=== PATIENT | male | born 1970 | race Caucasian/White ===

== ENCOUNTER 2016-08-26 15:30 | Emergency (ER) | payer OTHER ==
[~2016-08-26] VITALS: Ht 185.4 cm; Wt 130.0 kg
[~2016-08-26 15:30] MED LIST: CIPR500T2 PO; FLEX10TA OR; IBUP800T23 PO; RANI150T PO; TERA5CAP3 PO; TRAM50TA PO
[2016-08-26 15:33] VITALS: BP 136/89; PULSE 118; RESP 16; TEMP 98.8; O2SAT 97
--- NOTE | 2016-08-26 16:07 | PD ---
Physical Exam Date Seen by Provider: Aug 26, 2016 Time Seen by Provider: 16:03 Narrative 45 y/o male with Hx neuropathy presents with open blister to left lateral foot that he noticed 4 days ago with recent noticeable swelling and erythema. Denies fever or chills. Patient states pain of 2/10, in spite of neuropathy. Patients VS stable. Awaiting Bed Placement. Data Data Last Documented VS Vital Signs Date Time Temp Pulse Resp B/P Pulse Ox O2 Delivery O2 Flow Rate FiO2 08/26/16 15:33 98.8 118 16 136/89 97 Room Air [facility] Medical Record Reviewed: Yes Supervised Visit with ARIE: Yes Condition: Stable Syd Espinoza Aug 26, 2016 16:07
--- NOTE | 2016-08-26 17:04 | PD ---
HPI Chief Complaint: Injury Time Seen by Provider: 17:00 Travel History International Travel<30 days: No Contact w/Intl Traveler<30days: No Traveled to known affect area: No History of Present Illness HPI 45-year-old male that presents to the ED for evaluation of possible blister to his left leg. 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 The patient is not cancer but enough for him to have symptoms. Per patient he is usually able to ambulate but he has difficulty with sensation of his lower legs. Per patient this is chronic for him. No history of diabetes or hypertension. Per patient he noticed on Saturday that he had a blister to the lateral aspect of his left foot. Per patient his been able to monitor it but today seemed to be red and swollen. He is not sure what caused the blister although he does tell me he was doing yardwork when initially he noticed it. He denies any chest pain or shortness of breath. No fevers chills or sweats. Per patient he does have some discomfort on it which is 2 out of 10 more like a pressure which his initial for him as he has no sensation in the lower extremities. Per patient this is the main thing that made him concerned. He does have a history of staph infection secondary to lumbar puncture and surgery to his lower back for the tumor that got infected. PFSH Past Medical History Blood Disorders: No Cancer: No Cardiovascular Problems: No Chemotherapy: No Diminished Hearing: No Endocrine: No Gastrointestinal Disorders: No Genitourinary: No Immune Disorder: No Musculoskeletal: Yes Neurologic: No Psychiatric: No Reproductive: No Respiratory: No Past Surgical History AICD: No Arteriovenous Shunt: No Eye Surgery: Yes (CATARACT) Insulin Pump: No Joint Replacement: No Pacemaker: No Other Surgery: Yes (CATARACT) Social History Alcohol Use: Yes (5 TO 6 DRINKS A DAY 15 YEARS 02/12/06) Tobacco Use: Yes (1/2 PACK A DAY , 15 YEARS, 02/13/06) Substance Use: No Allergies-Medications (Allergen,Severity, Reaction): Coded Allergies: No Known Allergies (Verified , 08/26/16) Reported Meds & Prescriptions Reported Meds & Active Scripts Active Mupirocin Topical (Mupirocin) 2 % Oint 1 Applic TOPICAL BID Keflex (Cephalexin) 500 Mg Capsule 500 Mg PO Q8H 10 Days Clindamycin (Clindamycin HCl) 150 Mg Cap 300 Mg PO Q6H 10 Days Review of Systems Except as stated in HPI: all other systems reviewed are Neg Physical Exam Narrative GENERAL: SKIN: Warm and dry. HEAD: Atraumatic. Normocephalic. EYES: Pupils equal and round. No scleral icterus. No injection or drainage. ENT: No nasal bleeding or discharge. Mucous membranes pink and moist. Tongue is midline. No uvula deviation. NECK: Trachea midline. No JVD. CARDIOVASCULAR: Regular rate and rhythm. No murmurs, S3, S4. RESPIRATORY: No accessory muscle use. Clear to auscultation. Breath sounds equal bilaterally. GASTROINTESTINAL: Abdomen soft, non-tender, nondistended. Hepatic and splenic margins not palpable. MUSCULOSKELETAL: Extremities without clubbing, cyanosis, or edema. No obvious deformities. Full range of motion of the lower extremities with no pain. Patient does have noticeable sensation loss in the lower legs which is chronic. 2+ pulses bilaterally. Patient has an open wound which is about 3 cm in diameter on the lateral aspect of the right leg. Patient has some drainage from an as well as erythema surrounding it. Slightly tender to touch. No purulence or mass noted. Erythema seems to be creeping up. About 5 cm in diameter. NEUROLOGICAL: Awake and alert. No obvious cranial nerve deficits. Motor grossly within normal limits. Five out of 5 muscle strength in the arms and legs. Normal speech. PSYCHIATRIC: Appropriate mood and affect; insight and judgment normal. Data Data Last Documented VS Vital Signs Date Time Temp Pulse Resp B/P Pulse Ox O2 Delivery O2 Flow Rate FiO2 08/26/16 17:22 93 18 95 Room Air 08/26/16 15:33 98.8 136/89 Orders Complete Blood Count With Diff (08/26/16 16:37) Basic Metabolic Panel (Bmp) (08/26/16 16:37) Blood Culture (08/26/16 16:37) Magnesium (Mg) (08/26/16 16:37) Iv Access Insert/Monitor (08/26/16 16:37) Foot, Complete ([id number]) (08/26/16 ) Vascular Poc Ultrasound (08/26/16 ) Vascular Access Team Consult/P PRN (08/26/16 16:59) Clindamycin Inj (Cleocin Inj) (08/26/16 17:45) Wound Culture And Gram Stain (08/26/16 17:39) Labs Laboratory Tests Test 08/26/16 16:45 White Blood Count 11.0 TH/MM3 Red Blood Count 4.93 MIL/MM3 Hemoglobin 13.7 GM/DL Hematocrit 41.0 % Mean Corpuscular Volume 83.3 FL Mean Corpuscular Hemoglobin 27.8 PG Mean Corpuscular Hemoglobin 33.3 % Concent Red Cell Distribution Width 14.5 % Platelet Count 268 TH/MM3 Mean Platelet Volume 7.8 FL Neutrophils (%) (Auto) 79.1 % Lymphocytes (%) (Auto) 11.6 % Monocytes (%) (Auto) 6.4 % Eosinophils (%) (Auto) 2.0 % Basophils (%) (Auto) 0.9 % Neutrophils # (Auto) 8.7 TH/MM3 Lymphocytes # (Auto) 1.3 TH/MM3 Monocytes # (Auto) 0.7 TH/MM3 Eosinophils # (Auto) 0.2 TH/MM3 Basophils # (Auto) 0.1 TH/MM3 CBC Comment DIFF FINAL Differential Comment Sodium Level 138 MEQ/L Potassium Level 4.1 MEQ/L Chloride Level 105 MEQ/L Carbon Dioxide Level 24.3 MEQ/L Anion Gap 9 MEQ/L Blood Urea Nitrogen 12 MG/DL Creatinine 0.99 MG/DL Estimat Glomerular Filtration 81 ML/MIN Rate Random Glucose 106 MG/DL Calcium Level 9.1 MG/DL Magnesium Level 2.4 MG/DL MDM Medical Decision Making Medical Screen Exam Complete: Yes Emergency Medical Condition: Yes Medical Record Reviewed: Yes Interpretation(s) CBC & BMP Diagram 08/26/16 16:45 Last Impressions Foot X-Ray 08/26/16 0000 Signed Impressions: Service Date/Time: Friday, August 26, 2016 17:00 - CONCLUSION: 1. Soft tissue swelling laterally. Mickey Mustafa MD Differential Diagnosis Sepsis versus infected wound versus ulcer versus cellulitis versus osteomyelitis Narrative Course 45-year-old male that presents to the ED for evaluation of left foot infection. Patient was properly examined and was found to have signs and symptoms consistent appears to be infected wound. Labs and imaging ordered. Patient was started on clindamycin IV. Labs and imaging showed no sign of acute disease. Patient was reassured. This time this appears to be early cellulitis from wound infection. I attending Dr. corado evaluated the patient with me and agrees with plan. Patient will be discharged home with prescriptions for antibiotics. Told to do wound care. Recheck in 48 hours a PCP or us. See ED for worsening symptoms. Diagnosis Primary Impression: Wound infection Additional Impression: Cellulitis Qualified Code: L03.116 - Cellulitis of left lower extremity Patient Instructions: General Instructions Additional Instructions: Take medications as prescribed. Follow with PCP. See ED worsening symptoms. Recheck in 48 hours if no improvement at all. Med/Other Pt SpecificInfo: Prescription(s) given, Wound Care Scripts Mupirocin Topical 2 % Oint1 Applic TOPICAL BID #1 TUBE Ref 0 Prov:Ericka Maya MD 08/26/16 Cephalexin (Keflex)500 Mg [id number] Mg PO Q8H 10 Days Ref 0 Prov:Ericka Maya MD 08/26/16 Clindamycin 150 Mg [id number] Mg PO Q6H 10 Days Prov:Ericka Maya MD 08/26/16 Disposition: 01 DISCHARGE HOME Condition: Stable Matt Sebastian Aug 26, 2016 17:04
--- NOTE | 2016-08-26 17:08 | RADRPT ---
EXAM DATE/TIME: 08/26/2016 17:00 [facility] COMPARISON: No previous studies available for comparison. INDICATIONS : Laceration to lateral left side of foot. MEDICAL HISTORY : None. SURGICAL HISTORY : None. ENCOUNTER: Initial ACUITY: 1 day PAIN SCORE: 0/10 LOCATION: Left foot FINDINGS: Three view examination of the left foot demonstrates no dislocation, or fracture. Soft tissue swellin g laterally. No foreign body. The tarsal bones appear intact. The interphalangeal and metatarsophala ngeal joints are intact. The calcaneus is intact. Bony mineralization is normal. CONCLUSION: 1. Soft tissue swelling laterally. Mickey Mustafa MD on August 26, 2016 at 17:05 Board Certified Radiologist. This report was verified electronically.
[2016-08-26 17:18] LABS: AUTOMATED NEUTROPHIL # 8.7 TH/MM3 (1.8-7.7); BASOPHIL # 0.1 TH/MM3 (0-0.2); BASOPHIL % 0.9 % (0.0-2.0); EOSINOPHIL # 0.2 TH/MM3 (0-0.4); HEMO FLAGS DIFF FINAL; LYMPH % 11.6 % (9.0-44.0); LYMPHOCYTE # 1.3 TH/MM3 (1.0-4.8); MEAN CELL VOLUME 83.3 FL (80.0-100.0); MEAN CORPUSCULAR HEMOGLOBIN 27.8 PG (27.0-34.0); MEAN CORPUSCULAR HGB CONC 33.3 % (32.0-36.0); MONO % 6.4 % (0.0-8.0); NEUT % 79.1 % (16.0-70.0); PLATELET COUNT 268 TH/MM3 (150-450); RED BLOOD COUNT 4.93 MIL/MM3 (4.50-5.90); RED CELL DISTRIBUTION WIDTH 14.5 % (11.6-17.2)
[2016-08-26 17:33] LABS: BICARBONATE 24.3 MEQ/L (21.0-32.0); MAGNESIUM 2.4 MG/DL (1.5-2.5); POTASSIUM 4.1 MEQ/L (3.5-5.1)
[2016-08-26] MEDS ORDERED: CLIN1CAP5 PO (17:41)
[2016-08-26] MEDS ORDERED: CEPH-460 PO (17:41)
[2016-08-26] MEDS ORDERED: MUPI2OIN TOPICAL (17:41)
[2016-08-26] MEDS ORDERED: CLINDAMYCIN INJ 600 MG in SODIUM CHLORIDE 0.9% INJ 100 ML IV ONE (17:45)
== END 2016-08-26 18:57 | disposition home or self-care (01) ==
LOC: NEPE 15:30
DX: L03.116 Cellulitis of left lower limb (principal); B95.62 Methicillin resistant Staphylococcus aureus infection as the cause of diseases classified elsewhere; F17.210 Nicotine dependence, cigarettes, uncomplicated
CPT/HCPCS: 73630; 80048; 83735; 85025; 86403; 87040; 87070; 87186; 87205; 96365